=== PATIENT | female | born 2005 | race Two or more races ===

== ENCOUNTER → 2023-05-30 | Outpatient (REF) | payer BC | LOC: M LAB REF 16:39 | PROVIDERS: ATTEND Nurse Practitioner Family | DX: N61.1 Abscess of the breast and nipple (principal) ==

== ENCOUNTER → 2023-08-17 | Outpatient (REF) | payer BC | LOC: M LAB REF 11:14 | PROVIDERS: ATTEND Pediatrics | DX: Z00.00 Encounter for general adult medical examination without abnormal findings (principal); N61.0 Mastitis without abscess ==